=== PATIENT | female | born 1950 | race African-American/Black ===

== ENCOUNTER → 2016-12-18 | Outpatient (CLI) | payer MEDICARE, OTHER | LOC: RAD 09:10 | PROVIDERS: ATTEND Internal Medicine | DX: R13.10 Dysphagia, unspecified (principal) | CPT/HCPCS: 74220 ==

== ENCOUNTER → 2016-12-26 | Outpatient (CLI) | payer MEDICARE, OTHER | LOC: WI 12:32 | PROVIDERS: ATTEND Internal Medicine | DX: Z12.31 Encounter for screening mammogram for malignant neoplasm of breast (principal) | CPT/HCPCS: 77067; G0202 ==

== ENCOUNTER → 2017-02-18 | Outpatient (CLI) | payer MEDICARE, OTHER | LOC: RAD 16:28 | PROVIDERS: ATTEND Internal Medicine | DX: N20.0 Calculus of kidney (principal); N23 Unspecified renal colic | CPT/HCPCS: 76380 ==

== ENCOUNTER → 2017-03-06 | Outpatient (CLI) | payer MEDICARE, OTHER | LOC: RAD 10:34 | PROVIDERS: ATTEND Internal Medicine | DX: R74.8 Abnormal levels of other serum enzymes (principal); K80.50 Calculus of bile duct without cholangitis or cholecystitis without obstruction; K76.0 Fatty (change of) liver, not elsewhere classified | CPT/HCPCS: 76700; 93976 ==

== ENCOUNTER → 2017-07-17 | Outpatient (CLI) | payer MEDICARE, OTHER ==
[~2017-07-17] MED LIST: DIAZEPAM 5 MG TABLET ONE
--- NOTE | 2017-07-21 15:41 | RADIOLOGY REPORT (SQ) ---
EXAM DESCRIPTION: MRI LT UPPER JOINT WITHOUT COMPLETED DATE/TIME: 07/17/2017 4:13 pm REASON FOR STUDY: LEFT WRIST PAIN (M25.532) M25.532 PAIN IN LEFT WRIST COMPARISON: Subsequently obtained radiographs from 07/18/2017. TECHNIQUE: Left wrist images acquired and stored on PACS. Multiplanar images include fat sensitive sequences as T1, fluid sensitive sequences as FST2/STIR, cartilage sensitive sequences as FSPD, gradi ent echo sequences. LIMITATIONS: None. FINDINGS: BONE MARROW: Small cysts or erosions in the proximal capitate. Also minimally in the hama te proximally. Mild subchondral cysts along the lunate -triquetrum articulation. No fracture. CARPAL ALIGNMENT AND ARTICULATION: Volar tilt of the lunate. Narrowing of the lunate-capitate articu lation. Triscaphe and thumb base degenerative narrowing with small subchondral cysts and minimal spu rring. EFFUSION: None noted. No loose bodies. SCAPHOLUNATE LIGAMENT: Scapholunate interval widening. Discrete tear not otherwise suggested. LUNATE-TRIQUETRAL LIGAMENT: Intact without tear. TFC COMPLEX: Radial and ulnar attachments normal. Meniscus intact. Extensor carpi ulnaris tendon norm al without tendinopathy. EXTRINSIC LIGAMENTS AND DISTAL RADIO-ULNAR JOINT: Dorsal and volar distal RUJ intact without subluxat ion of the distal ulna. 1-6 EXTENSOR COMPARTMENTS: Normal. Specifically no tendinopathy of the abductor pollicis longus or ex tensor pollicis brevis to suggest de Quervain's Syndrome. CARPAL TUNNEL AND MEDIAN NERVE: Normal volume and morphology of the carpal tunnel proximally at the l evel of the radiocarpal joint and distally at the hook of the hamate. No thickening or signal alterat ion of the median nerve. OTHER: No other significant finding. IMPRESSION: 1. Carpal malalignment as above consistent with instability, VISI pattern. Associated prominent subchondral cysts or erosions in the carpal articulations. TECHNICAL DOCUMENTATION: JOB ID: [id number] [employer]- All Rights Reserved
== END ==
LOC: RAD 14:21
PROVIDERS: ATTEND Internal Medicine
DX: M25.532 Pain in left wrist (principal); M25.332 Other instability, left wrist
CPT/HCPCS: 73221; A9270

== ENCOUNTER → 2017-07-18 | Outpatient (CLI) | payer MEDICARE, OTHER ==
--- NOTE | 2017-07-18 14:01 | RADIOLOGY REPORT (SQ) ---
EXAM DESCRIPTION: WRIST LEFT 2 VIEWS COMPLETED DATE/TIME: 07/18/2017 12:52 pm REASON FOR STUDY: PAIN IN L WRIST M25.532 PAIN IN LEFT WRIST COMPARISON: None. NUMBER OF VIEWS: Two views TECHNIQUE: AP and lateral radiographic images acquired of the left wrist. LIMITATIONS: None. FINDINGS: MINERALIZATION: Normal. BONES: No acute fracture. The lunate appears to be rotated dorsally somewhat. There may be slight w idening of the scapholunate interval. SOFT TISSUES: No soft tissue swelling. No foreign body. OTHER: No other significant finding. IMPRESSION: Possible ligamentous injury involving the lunate. The lunate is rotated dorsally somewh at and there appears to be widening of the scapholunate interval. TECHNICAL DOCUMENTATION: JOB ID: [id number] [employer]- All Rights Reserved
== END ==
LOC: RAD 12:40
PROVIDERS: ATTEND Internal Medicine
DX: M25.532 Pain in left wrist (principal)

== ENCOUNTER 2017-10-30 15:11 | Observation (INO) | payer MEDICARE, OTHER ==
[2017-10-30] MEDS ORDERED: INSULIN LISPRO 100 UNIT/ML 3 ML VIAL SUBCUT PRN (17:26)
[2017-10-30] MEDS ORDERED: DEXTROSE 40% GEL 15 GM TUBE PO PRN ×2 (17:26)
[2017-10-30] MEDS ORDERED: DEXTROSE 50%-WATER 25 GM/50 ML DISP.SYRIN IV PRN ×2 (17:26)
[2017-10-30] MEDS ORDERED: GLUCAGON,HUMAN RECOMB 1 MG INJ IM PRN (17:26)
[2017-10-30] MEDS ORDERED: CHLORPHENIRAMINE MALEATE 4 MG TABLET PO PRN (18:45)
[2017-10-30] MEDS ORDERED: ALBUTEROL SULFATE HFA (90 MCG/PUFF) 200 PUFF/8.5 GM MDI IH PRN (18:45)
[2017-10-30] MEDS ORDERED: CYCLOBENZAPRINE HCL 10 MG TABLET PO PRN (18:45)
[2017-10-30 20:02] LABS: ABSOLUTE EOSINOPHILS # (AUTO) 0.3 10^3/uL (0.0-0.6); ABSOLUTE LYMPHOCYTES (AUTO) 2.5 10^3/uL (0.5-4.7); ABSOLUTE MONOCYTES (AUTO) 0.7 10^3/uL (0.1-1.4); ABSOLUTE NEUT (AUTO) 3.9 10^3/uL (1.7-8.2); BASOPHILS % (AUTO) 0.6 % (0-2); HEMATOCRIT 35.8 % (36.0-47.0); HEMOGLOBIN 11.8 g/dL (12.0-15.5); LYMPHOCYTES % (AUTO) 33.9 % (13-45); MEAN CORPUSCULAR HEMOGLOBIN 27.8 pg (27.0-33.4); MEAN CORPUSCULAR HGB CONC 32.9 g/dL (32.0-36.0); MEAN CORPUSCULAR VOLUME 84 fl (80-97); PLATELET COUNT 250 10^3/uL (150-450); RED BLOOD COUNT 4.24 10^6/uL (3.72-5.28); RED CELL DISTRIBUTION WIDTH 15.5 % (11.5-14.0); SEGMENTED NEUTROPHILS % (AUTO) 52.5 % (42-78); TOTAL CELLS COUNTED % (AUTO) 100 %; WHITE BLOOD COUNT 7.3 10^3/uL (4.0-10.5)
[2017-10-30 20:25] LABS: ALANINE AMINOTRANSFERASE 27 U/L (9-52); ALBUMIN 3.7 g/dL (3.5-5.0); ALKALINE PHOSPHATASE 156 U/L (38-126); ASPARTATE AMINO TRANSFERASE 18 U/L (14-36); BILIRUBIN,DIRECT 0.2 mg/dL (0.0-0.4); BILIRUBIN,TOTAL 0.3 mg/dL (0.2-1.3); BLOOD UREA NITROGEN 17 mg/dL (7-20); CALCIUM 9.5 mg/dL (8.4-10.2); CARBON DIOXIDE 30 mmol/L (22-30); CREATINE KINASE 79 U/L (30-135); GLUCOSE 130 mg/dL (75-110); POTASSIUM 3.9 mmol/L (3.6-5.0); SODIUM 139.8 mmol/L (137-145); TOTAL PROTEIN 6.6 g/dL (6.3-8.2)
[2017-10-30 20:26] LABS: ANION GAP 10 (5-19); CHLORIDE 100 mmol/L (98-107)
--- NOTE | 2017-10-30 20:34 | PDOC H&P ---
History of Present Illness Admission Date/PCP: 10/30/17 15:11 EMIGDIO WOODY MD History of Present Illness: NEVAEH BAHENA is a 67 year old female, She came to the office this afternoon for evaluation of substernal chest pain. She went to see the pain specialist this afternoon and she developed acute episode of substernal chest pain that radiated to her jaw area there was no antecedent provoking factors there was no exertion. She was advised to see us in the office immediately, she came to the office from the pain specialist office she was walked into the office , she was taken immediately to the back ,vital signs were taking a 12-lead EKG was done showed sinus rhythm there was no acute ST-T wave changes there was evidence of intra-ventricular conduction delay the EKG that was done today was no different from EKG done 4 years ago. She had a cardiac cauterization in 2007 that showed normal coronary arteries. Because she has multiple risk factors for ischemic heart disease, type 2 diabetes mellitus, hypertension, relatively sedentary lifestyle, she was admitted to the hospital for evaluation and management of her symptoms. She had lexiscan Cardiolite stress test done, there is no scintigraphic evidence of Lexiscan induced mild myocardial ischemia involving the inferior apex and distal inferior wall. There is no definitive scintigraphic evidence of myocardial. infarction/scar. EKG gated imaging shows left ventricular ejection fraction of approximately 39%, 2D echo showed grade 2 diastolic dysfunction of left ventricle. Ultrasound of the gallbladder was negative Past Medical History Cardiac Medical History: Reports: Hyperlipidema, Hypertension Endocrine Medical History: Reports: Diabetes Mellitus Type 2, Hypothyroidism, Obesity GI Medical History: Reports: Gastroesophageal Reflux Disease, Hiatal Hernia, Other - Fatty liver Musculoskeltal Medical History: Reports: Arthritis - "EVERYWHERE" Past Surgical History Past Surgical History: Reports: Hysterectomy, Orthopedic Surgery - rt knee replacememt Social History Smoking Status: Former Smoker Last Time Smoked: 10 years ago Frequency of Alcohol Use: None Hx Recreational Drug Use: No Hx Prescription Drug Abuse: No Family History Family History: Reviewed & Not Pertinent Parental Family History Reviewed: Yes Children Family History Reviewed: Yes Sibling(s) Family History Reviewed.: Yes Medication/Allergy Home Medications: Albuterol Sulfate [Proair HFA Inhalation Aerosol 8.5 gm MDI] 2 puff IH Q4HP PRN 10/30/17 Alprazolam [Xanax 0.5 mg Tablet] 0.5 mg PO Q8HP PRN 10/30/17 Aspirin [Aspirin EC] 81 mg PO DAILY 10/30/17 Canagliflozin [Invokana] 300 mg PO DAILY 10/30/17 Chlorpheniramine Maleate [Chlor-Trimeton 4 mg Tablet] 4 mg PO DAILYP PRN Cyclobenzaprine HCl [Flexeril 10 mg Tablet] 10 mg PO Q8HP PRN 10/30/17 Doxepin HCl 50 mg PO BID 10/30/17 Ergocalciferol (Vitamin D2) [Drisdol 50,000 unit (1.25MG) Capsule] 50,000 unit PO MALCOLM@1000 10/30/17 Esomeprazole Magnesium [Nexium] 40 mg PO DAILY 10/30/17 Gabapentin [Neurontin] 600 mg PO Q8 10/30/17 Glimepiride [Amaryl 4 mg Tablet] 4 mg PO ACBRKFST 10/30/17 Hydrocodone/Acetaminophen [[place] 10-325 mg Tablet] 1 tab PO Q8HP PRN 10/30/17 Levothyroxine Sodium [Synthroid] 137 mcg PO Q6AM 10/30/17 Meloxicam [Mobic] 15 mg PO DAILY 10/30/17 Metformin HCl [Metformin HCl ER] 500 mg PO DAILY 10/30/17 Omeprazole 40 mg PO DAILY 10/30/17 Pioglitazone HCl [Actos 15 mg Tablet] 15 mg PO DAILY 10/30/17 Potassium Chloride [Klor-Con 10 Meq Tablet.sa] 10 meq PO DAILY 10/30/17 Tiotropium [place] [Spiriva Handihaler 18 mcg/dose (30 Dose)] 1 cap IH DAILY Valsartan/Hydrochlorothiazide [Diovan Hct 320-25 mg Tablet] 1 tab PO DAILY 10/30 Allergies/Adverse Reactions: adhesive [Adhesive] Allergy (Intermediate, Verified 09/20/15 08:42) BLISTERS IF STAYS ON TOO LONG Review of Systems Constitutional: ABSENT: as per HPI, anorexia, chills, fatigue, fever(s), headache(s), night sweats, weakness, weight gain, weight loss, other Ears: ABSENT: hearing changes Nose, Mouth, and Throat: ABSENT: as per HPI, headache(s), mouth pain, sore throat, vertigo, other Cardiovascular: PRESENT: chest pain Respiratory: ABSENT: cough, hemoptysis Gastrointestinal: ABSENT: abdominal pain, constipation, diarrhea, hematemesis, hematochezia, nausea, vomiting Genitourinary: ABSENT: dysuria, hematuria Musculoskeletal: ABSENT: joint swelling Integumentary: ABSENT: rash, wounds Neurological: ABSENT: abnormal gait, abnormal speech, confusion, dizziness, focal weakness, syncope Psychiatric: ABSENT: anxiety, depression, homidical ideation, suicidal ideation Endocrine: ABSENT: cold intolerance, heat intolerance, menstrual abnormalities, polydipsia, polyuria Hematologic/Lymphatic: ABSENT: easy bleeding, easy bruising, lymphadenopathy Physical Exam Vital Signs: Temp Pulse Resp BP Pulse Ox 97.6 F 62 18 131/64 H 95 10/30/17 16:01 10/30/17 16:01 10/30/17 16:01 10/30/17 16:01 10/30/17 16:01 Intake & Output 10/29/17 10/30/17 10/31/17 06:59 06:59 06:59 Intake Total 10 Output Total 0 Balance 10 Weight 102.5 kg General appearance: PRESENT: no acute distress, well-developed, well-nourished Head exam: PRESENT: atraumatic, normocephalic Eye exam: PRESENT: conjunctiva pink, EOMI, PERRLA Ear exam: PRESENT: normal external ear exam Mouth exam: PRESENT: moist, tongue midline Neck exam: PRESENT: full ROM Respiratory exam: PRESENT: clear to auscultation evin Cardiovascular exam: PRESENT: RRR, +S1, +S2 Pulses: PRESENT: normal dorsalis pedis pul, +2 pedal pulses bilateral Vascular exam: PRESENT: normal capillary refill GI/Abdominal exam: PRESENT: normal bowel sounds, soft Rectal exam: PRESENT: deferred Neurological exam: PRESENT: alert, CN II-XII grossly intact Psychiatric exam: PRESENT: appropriate affect, normal mood Skin exam: PRESENT: dry, intact, warm Results Laboratory Results: 10/30/17 19:44 10/30/17 19:44 10/30/17 10/30/17 19:44 19:44 WBC 7.3 RBC 4.24 Hgb 11.8 L Hct 35.8 L MCV 84 MCH 27.8 MCHC 32.9 RDW 15.5 H Plt Count 250 Seg Neutrophils % 52.5 Lymphocytes % 33.9 Monocytes % 9.0 Eosinophils % 4.0 Basophils % 0.6 Absolute Neutrophils 3.9 Absolute Lymphocytes 2.5 Absolute Monocytes 0.7 Absolute Eosinophils 0.3 Absolute Basophils 0.0 Sodium 139.8 Potassium 3.9 Chloride 100 Carbon Dioxide 30 Anion Gap 10 BUN 17 Creatinine 0.93 Est GFR ( Amer) > 60 Est GFR (Non-Af Amer) > 60 Glucose 130 H Calcium 9.5 Total Bilirubin 0.3 AST 18 ALT 27 Alkaline Phosphatase 156 H Total Protein 6.6 Albumin 3.7 10/30/17 19:44 Creatine Kinase 79 Assessment & Plan - Diagnosis (1) Chest pain Qualifiers: Chest pain type: unspecified Qualified Code(s): R07.9 - Chest pain, unspecified Is this a current diagnosis for this admission?: Yes (2) Abnormal cardiovascular stress test Is this a current diagnosis for this admission?: Yes Plan: The nuclear stress test is abnormal suggesting that the chest pain could be cardiac related, consultation will be requested from cardiology (3) Type 2 diabetes mellitus Qualifiers: Diabetes mellitus complication status: without complication Diabetes mellitus alf insulin use: without alf use Qualified Code(s): E11.9 - Type 2 diabetes mellitus without complications Is this a current diagnosis for this admission?: Yes
[2017-10-30 20:37] LABS: CREATINE KINASE MB 0.46 ng/mL (<4.55); TROPONIN I < 0.012 ng/mL
[2017-10-30] MEDS ORDERED: ENOXAPARIN SODIUM INJ 40 MG/0.4 ML DISP.SYRIN SUBCUT ONE (21:00)
[2017-10-30 21:07] LABS: INTERNATIONAL RATION (INR) 0.86; PROTHROMBIN TIME 12.4 SEC (11.4-15.4)
--- NOTE | 2017-10-30 21:08 | RADIOLOGY REPORT (SQ) ---
EXAM DESCRIPTION: CHEST SINGLE VIEW COMPLETED DATE/TIME: 10/30/2017 8:33 pm REASON FOR STUDY: chest pain COMPARISON: 07/13/2016 EXAM PARAMETERS: NUMBER OF VIEWS: One view. TECHNIQUE: Single frontal radiographic view of the chest acquired. RADIATION DOSE: NA LIMITATIONS: None. FINDINGS: LUNGS AND PLEURA: No acute opacities, masses or pneumothorax. No pleural effusion. MEDIASTINUM AND HILAR STRUCTURES: Stable. HEART AND VASCULAR STRUCTURES: Heart normal in size. Normal vasculature. BONES: No acute findings. HARDWARE: None in the chest. OTHER: No other significant finding. IMPRESSION: NO ACUTE RADIOGRAPHIC FINDING IN THE CHEST. TECHNICAL DOCUMENTATION: JOB ID: [id number] [id number] [employer]- All Rights Reserved
[2017-10-30] MEDS: GABAPENTIN 300 MG CAPSULE PO SCH (22:17)
[2017-10-30] MEDS: ALPRAZOLAM 0.5 MG TABLET PO PRN (22:18)
[2017-10-30] MEDS: HYDROCODONE/ACETAMINOPHEN 10-325 MG TABLET PO PRN (22:18)
[2017-10-30] MEDS: DOXEPIN HCL 25 MG CAPSULE PO SCH (22:31)
[2017-10-31 02:25] LABS: CREATINE KINASE MB 0.36 ng/mL (<4.55)
[2017-10-31 02:37] LABS: TROPONIN I < 0.012 ng/mL
[2017-10-31] MEDS: GABAPENTIN 300 MG CAPSULE PO SCH ×3 (05:09→22:23)
[2017-10-31] MEDS: LEVOTHYROXINE SODIUM 0.025 MG TABLET PO SCH (05:10)
[2017-10-31] MEDS: LANSOPRAZOLE 30 MG TAB.RAP.DR PO SCH (05:10)
[2017-10-31] MEDS: LEVOTHYROXINE SODIUM 0.112 MG TABLET PO SCH (05:10)
[2017-10-31] MEDS ORDERED: (PENDING PHARMACY ID) (Levothyroxine Sodium [Synthroid] 137 MCG) PO SCH (06:00)
--- NOTE | 2017-10-31 07:08 | RADIOLOGY REPORT (SQ) ---
EXAM DESCRIPTION: U/S ABDOMEN LIMITED W/O DOP CLINICAL HISTORY: EPIGASTRIC PAIN COMPARISON: None. TECHNIQUE: Real-time sonographic images of the right upper abdomen were obtained using a curved multihertz transducer. FINDINGS: The visualized portions of the pancreas are unremarkable. The visualized portions of the aorta and IVC are unremarkable. The liver has normal contour and increased echogenicity. The common bile duct measures 0.3 cm. Hepatopedal flow in the portal vein. The gallbladder has a normal appearance. No gallstones identified. No wall thickening or pericholecystic fluid. The pancreas is not well-visualized due to overlying bowel gas. Negative reported sonographic Luque sign. The right kidney measures 10.1 cm in length. No hydronephrosis or solid mass. Questionable echogenic structure involving the superior pole of the right kidney may represent a nonobstructing calculus. IMPRESSION: 1. No gallstones identified. 2. Hepatic steatosis. 3. Possible nonobstructing superior pole right renal calculus.
[2017-10-31] MEDS: GLIMEPIRIDE 4 MG TABLET PO SCH (08:56)
[2017-10-31] MEDS: METFORMIN HCL 500 MG TABLET PO SCH ×2 (08:56→17:33)
[2017-10-31 09:12] LABS: CREATINE KINASE MB 0.34 ng/mL (<4.55)
[2017-10-31 09:22] LABS: TROPONIN I < 0.012 ng/mL
[2017-10-31] MEDS ORDERED: PIOGLITAZONE HCL 15 MG TABLET PO SCH (10:00)
[2017-10-31] MEDS ORDERED: (PENDING PHARMACY ID) (Doxepin Hcl [Doxepin Hcl] 50 MG) PO SCH (10:00)
[2017-10-31] MEDS ORDERED: ASPIRIN 81 MG TABLET, ENT COATED PO SCH (10:00)
[2017-10-31] MEDS ORDERED: POTASSIUM CHLORIDE 10 MEQ TABLET.SA PO SCH (10:00)
[2017-10-31] MEDS ORDERED: VALSARTAN 160 MG TABLET PO SCH (10:00)
[2017-10-31] MEDS ORDERED: ENOXAPARIN SODIUM INJ 40 MG/0.4 ML DISP.SYRIN SUBCUT SCH (10:00)
[2017-10-31] MEDS ORDERED: (PENDING PHARMACY ID) (Valsartan/Hydrochlorothiazide [Diovan Hct 320-25 Mg Tablet] 1 TAB) PO SCH (10:00)
[2017-10-31] MEDS ORDERED: HYDROCHLOROTHIAZIDE 25 MG TABLET PO SCH (10:00)
[2017-10-31] MEDS ORDERED: (PENDING PHARMACY ID) (Metformin Hcl [Metformin Hcl Er] 500 MG) PO SCH (10:00)
[2017-10-31] MEDS ORDERED: MELOXICAM 15 MG TABLET PO SCH (10:00)
[2017-10-31] MEDS ORDERED: (PENDING PHARMACY ID) (Canagliflozin [Invokana] 300 MG) PO SCH (10:00)
[2017-10-31] MEDS ORDERED: TIOTROPIUM BROMIDE DPI 5 CAP/KIT (18 MCG/CAP) IH SCH (10:00)
[2017-10-31] MEDS: DOXEPIN HCL 25 MG CAPSULE PO SCH ×2 (11:36→22:37)
--- NOTE | 2017-10-31 12:49 | XCELERA REPORT ---
[address] [address] Transthoracic Echocardiogram Report Name: NEVAEH BAHENA Age: 67 yrs Gender: Female : 1950 Patient Status: Inpatient Patient Location: [address] [place], [place] [address] Study Date: 10/31/2017 09:05 AM Height: 62 in Weight: 225 lb BSA: 2.0 m2 Procedure: A complete two-dimensional transthoracic echocardiogram was performed (2D, M-mode, spectral and color flow Doppler). The study was technically difficult with many images being suboptimal in quality. Reason For Study: chest pain Ordering Physician: EMIGDIO WOODY Performed By: Giovanna Vigil Interpretation Summary The study was technically difficult with many images being suboptimal in quality. LV EF is 50% Left ventricular systolic function is borderline reduced. There is mild concentric left ventricular hypertrophy. The left ventricle is grossly normal size. Doppler measurements suggest pseudonormalized left ventricular relaxation, which is associated with grade II/IV or mild to moderate diastolic dysfunction Wall motion cannot be accurately commented on, but no definite regional wall motion abnormalities noted. The right ventricular systolic function is normal. The right atrium is normal in size The left atrial size is normal. There is a trace amount of mitral regurgitation There is no mitral valve stenosis. No aortic regurgitation is present. There is no aortic valve stenosis There is a trace or physiologic amount of tricuspid regurgitation Tricuspid regurgitation jet envelope not well defined to measure RV systolic pressure accurately. The aortic root is not well visualized but is probably normal size. The inferior vena cava appeared normal and decreased > 50% with respiration (RAP 5-10 mmHg) There is no pericardial effusion. MMode/2D Measurements & Calculations RVDd: 3.0 cm LVIDd: 5.1 cm FS: 25.0 % Ao root diam: 2.4 cm IVSd: 1.1 cm LVIDs: 3.8 cm EDV(Teich): 125.0 ml LVPWd: 1.1 cm ESV(Teich): 63.6 ml Ao root area: 4.6 cm2 EF(Teich): 49.1 % LA dimension: 3.2 cm Doppler Measurements & Calculations MV E max eric: MV P1/2t max eric: Ao V2 max: LV V1 max P.5 cm/sec 51.5 cm/sec 163.9 cm/sec 5.8 mmHg MV A max eric: MV P1/2t: 77.8 msec Ao max PG: LV V1 max: 58.7 cm/sec 10.7 mmHg 120.7 cm/sec MV E/A: 0.88 MVA(P1/2t): 2.8 cm2 MV dec slope: 194.2 cm/sec2 MV dec time: 0.26 sec PA V2 max: PI end-d eric: 95.8 cm/sec 137.1 cm/sec PA max P.7 mmHg Left Ventricle The left ventricle is grossly normal size. There is mild concentric left ventricular hypertrophy. Left ventricular systolic function is borderline reduced. LV EF is 50%. Doppler measurements suggest pseudonormalized left ventricular relaxation, which is associated with grade II/IV or mild to moderate diastolic dysfunction. Wall motion cannot be accurately commented on, but no definite regional wall motion abnormalities noted. Right Ventricle The right ventricle is grossly normal size. There is normal right ventricular wall thickness. The right ventricular systolic function is normal. Atria The right atrium is normal in size. The left atrial size is normal. Interarterial septum not well visualized and not well dopplered. Cannot comment on ASD/PFO presence. Mitral Valve The mitral valve is grossly normal. There is no mitral valve stenosis. There is a trace amount of mitral regurgitation. Aortic Valve The aortic valve is not well visualized secondary to technical limitations. There is no aortic valve stenosis. No aortic regurgitation is present. Tricuspid Valve The tricuspid valve is not well visualized, but is grossly normal. There is no tricuspid stenosis. There is a trace or physiologic amount of tricuspid regurgitation. Tricuspid regurgitation jet envelope not well defined to measure RV systolic pressure accurately. Pulmonic Valve The pulmonic valve is not well visualized. Great Vessels The aortic root is not well visualized but is probably normal size. The inferior vena cava appeared normal and decreased > 50% with respiration (RAP 5-10 mmHg). Effusions There is no pericardial effusion. : EMIGDIO WOODY > Shoaib Cha
--- NOTE | 2017-10-31 13:12 | DRAGON STRESS TEST REPORT ---
INTRAVENOUS LEXISCAN CARDIOLITE STRESS TEST USING SINGLE PHOTON EMMISION COMPUTERIZED TOMOGRAPHIC. DATE OF PROCEDURE: October 31, 2017 INDICATION : Chest pain CARDIAC RISK FACTORS: Diabetes, hypertension RESTING EKG: Sinus rhythm, nonspecific IVCD and minor nonspecific ST-T wave changes. STRESS EKG: No significant changes noted with LexiScan bolus REASON FOR TERMINATION: Protocol. PROCEDURE REPORT: Baseline heart rate 73 beats per minute with blood pressure of 102/49. Patient had no significant complaints. Heart rate at 2 minutes post bolus 86 with a blood pressure of 103/55. 3 minutes post bolus heart rate 88 with blood pressure of 106/54. No significant EKG changes were noted. Patient had no significant complaints during the procedure or postprocedure. Patient injected with Aminophyllin 75 mg at 3 minutes or later after Lexiscan bolus. CONCLUSIONS: Normal EKG and hemodynamic response to IV LexiScan. NUCLEAR DATA: At rest the patient was given 14.73 millicuries of technetium 99 sestamibi injected intravenously. As per protocol rest gated SPECT images were obtained. Subsequently the patient was given intravenous LexiScan at a dose of 0.4 mg in 5 mL intravenously, followed by flush with normal saline. Subsequently the stress dose of 45.5 millicuries of technetium 99 sestamibi was injected intravenously. As per protocol stress gated images were obtained. NUCLEAR INTERPRETATION: Both raw and processed data were used for interpretation. Visual, qualitative, computer-generated quantitative data was used. There was good myocardial uptake of technetium compound. Motion artifact and soft tissue attenuations were noted. Increased visceral uptake was noted. Mild perfusion defect noted in the distal inferior wall and inferoapex of the left ventricle. This is consistent with mild ischemia. No definitive areas of fixed perfusion defect or scars noted. EKG gated imaging showed LV EF at 39 %, rest and stress gated EF similar visually. T. I D. ratio was 0.86. Lung heart ratio noted to be within normal limits 0.36. No significant extracardiac and abnormal radiotracer activities were noted. RV free wall uptake was noted to be WNL. IMPRESSION: Also refer to comments under nuclear interpretation. Also test results needs to be interpreted in the context of pretest probability. 1. There is scintigraphic evidence of LexiScan induced mild myocardial ischemia involving the inferior apex and distal inferior wall. 2. There is no definitive scintigraphic evidence of myocardial infarction/scar. 3. EKG gated imaging shows left ventricular ejection fraction of approximately 39 %. 4. Clinical correlation requested as occasionally single vessel disease or balanced ischemia could be missed. In approximately 10% of the cases Lexiscan may not cause adequate vasodilatory stress. RECOMMENDATIONS: Aggressive risk factor modification, medical therapy. May consider heart catheterization if significant symptoms. Clinical correlation with echocardiogram derived ejection fraction. Inability to exercise by itself can lead to increased cardiovascular event risks. Consider cardiology consultation and or follow-up if clinically indicated. I AM AVAILABLE FOR CARDIOLOGY CONSULTATION AND FOLLOWUP IF REQUESTED BY PMD Shoaib Cha M.D., [place] Director [employer] blending plant operator, Board certified in cardiovascular diseases, Nuclear cardiology, Echocardiography Cardiac CT and cardiac MRI Ph. [phone] [place]
[2017-10-31] MEDS ORDERED: AMINOPHYLLINE INJ/PF 250 MG/10 ML SDV IV ONE (15:04)
[2017-10-31] MEDS ORDERED: REGADENOSON INJ 0.4 MG/5 ML DISP.SYRIN IV ONE (15:04)
[2017-10-31] MEDS ORDERED: NORMAL SALINE 1000 ML 1,000 ML IV PRN (18:42)
--- NOTE | 2017-10-31 18:56 | PDOC CONSULTATION ---
Consultation Consult Date: 10/31/17 Attending physician:: EMIGDIO WOODY Consult reason:: Chest pain History of Present Illness Admission Date/PCP: 10/30/17 15:11 EMIGDIO WOODY MD Patient complains of: Chest pain and shortness of breath History of Present Illness: NEVAEH BAHENA is a 67 year old female, She came to the office this afternoon for evaluation of substernal chest pain. She went to see the pain specialist this afternoon and she developed acute episode of substernal chest pain that radiated to her jaw area there was no antecedent provoking factors there was no exertion. She was advised to see us in the office immediately, she came to the office from the pain specialist office she was walked into the office , she was taken immediately to the back ,vital signs were taking a 12-lead EKG was done showed sinus rhythm there was no acute ST-T wave changes there was evidence of intra-ventricular conduction delay the EKG that was done today was no different from EKG done 4 years ago. She had a cardiac cauterization in 2007 that showed normal coronary arteries. Because she has multiple risk factors for ischemic heart disease, type 2 diabetes mellitus, hypertension, relatively sedentary lifestyle, she was admitted to the hospital for evaluation and management of her symptoms. She had lexiscan Cardiolite stress test done, there is no scintigraphic evidence of Lexiscan induced mild myocardial ischemia involving the inferior apex and distal inferior wall. There is no definitive scintigraphic evidence of myocardial. infarction/scar. EKG gated imaging shows left ventricular ejection fraction of approximately 39%, 2D echo showed grade 2 diastolic dysfunction of left ventricle. Ultrasound of the gallbladder was negative. This history was reviewed and confirmed. Patient claims history of blood clots. She is fairly inactive. She does give history of shortness of breath on mild exertion. She does have history of loud snoring and nocturnal dyspnea. Patient also gives history of spinal stenosis. Patient is exposed to secondhand smoking. Cardiac enzymes has been negative. Patient has been in the room. Patient has been noted to have loud habitual snoring, nocturnal awakening, multiple times, daytime fatigue and sleepiness. Patient denied any formal diagnosis of sleep apnea syndrome. Past Medical History Cardiac Medical History: Reports: Hyperlipidema, Hypertension Neurological Medical History: Denies: Seizures Endocrine Medical History: Reports: Diabetes Mellitus Type 2, Hyperthyroidism, Hypothyroidism, Obesity GI Medical History: Reports: Gastroesophageal Reflux Disease, Hiatal Hernia, Other - Fatty liver Musculoskeltal Medical History: Reports: Arthritis - "EVERYWHERE" Psychiatric Medical History: Denies: Depression Past Surgical History Past Surgical History: Reports: Cardiac Catheterization - 2 approx 10 years ago which were told to be negative., Hysterectomy, Orthopedic Surgery - rt knee replacememt Social History Information Source: Patient Smoking Status: Former Smoker Last Time Smoked: 10 years ago Frequency of Alcohol Use: None Hx Recreational Drug Use: No Hx Prescription Drug Abuse: No - Advance Directive Resuscitation Status: Full Code Surrogate healthcare decision maker:: Patient's at the surrogate decision-maker Family History Family History: Hypertension Parental Family History Reviewed: Yes Children Family History Reviewed: Yes Sibling(s) Family History Reviewed.: Yes Medication/Allergy Home Medications: Albuterol Sulfate [Proair HFA Inhalation Aerosol 8.5 gm MDI] 2 puff IH Q4HP PRN 10/30/17 Alprazolam [Xanax 0.5 mg Tablet] 0.5 mg PO Q8HP PRN 10/30/17 Aspirin [Aspirin EC] 81 mg PO DAILY 10/30/17 Canagliflozin [Invokana] 300 mg PO DAILY 10/30/17 Chlorpheniramine Maleate [Chlor-Trimeton 4 mg Tablet] 4 mg PO DAILYP PRN Cyclobenzaprine HCl [Flexeril 10 mg Tablet] 10 mg PO Q8HP PRN 10/30/17 Doxepin HCl 50 mg PO BID 10/30/17 Ergocalciferol (Vitamin D2) [Drisdol 50,000 unit (1.25MG) Capsule] 50,000 unit PO MALCOLM@1000 10/30/17 Esomeprazole Magnesium [Nexium] 40 mg PO DAILY 10/30/17 Gabapentin [Neurontin] 600 mg PO Q8 10/30/17 Glimepiride [Amaryl 4 mg Tablet] 4 mg PO ACBRKFST 10/30/17 Hydrocodone/Acetaminophen [[place] 10-325 mg Tablet] 1 tab PO Q8HP PRN 10/30/17 Levothyroxine Sodium [Synthroid] 137 mcg PO Q6AM 10/30/17 Meloxicam [Mobic] 15 mg PO DAILY 10/30/17 Metformin HCl [Metformin HCl ER] 500 mg PO DAILY 10/30/17 Omeprazole 40 mg PO DAILY 10/30/17 Pioglitazone HCl [Actos 15 mg Tablet] 15 mg PO DAILY 10/30/17 Potassium Chloride [Klor-Con 10 Meq Tablet.sa] 10 meq PO DAILY 10/30/17 Tiotropium [place] [Spiriva Handihaler 18 mcg/dose (30 Dose)] 1 cap IH DAILY Valsartan/Hydrochlorothiazide [Diovan Hct 320-25 mg Tablet] 1 tab PO DAILY 10/30 Allergies/Adverse Reactions: adhesive [Adhesive] Allergy (Intermediate, Verified 09/20/15 08:42) BLISTERS IF STAYS ON TOO LONG Review of Systems Review of Systems: Please see history of present illness and past medical history as wall. Constitutional: No fever or chills reported. Head : No recent chronic headaches, recent head injury. Eyes: No recent eye pain, diplopia, redness, discharge, acute visual changes. Ears: No recent chronic ear pain, acute hearing loss, ear discharge. Oral cavity: No recent ulcerations, bleeding, oral cavity discomfort. Neck: No recent acute neck pain reported. Hematologic: No recent easy bruising or bleeding or hematologic malignancy reported. Lymphatic: No recent lymphatic malignancy, chronic lymphadenopathy reported yet Cardiovascular system review: See history of present illness. Respiratory system review: No recent chronic cough, hemoptysis, blood clots in the lungs reported. Mild Shortness of breath on exertion Gastrointestinal system review: Negative for any recent acute or chronic abdominal pain, hematemesis, melena, recent change in bowel habits. Genitourinary system review: No recent acute or chronic hematuria, flank pain, UTI etc. reported. Skin system review: Negative for any recent abnormal bruising, no rash, no pruritus reported. Neurologic: No prior history of strokes, mini strokes, seizure disorder. Psychologic: No history of major psychosis or major depression reported. Musculoskeletal: Minor aches and pains reported. No acute joint swelling reported. Endocrine: No recent polyuria, polydipsia, recent heat or cold intolerance. Physical Exam Vital Signs: Temp Pulse Resp BP Pulse Ox 98.1 F 82 18 98/52 L 96 10/31/17 16:08 10/31/17 16:08 10/31/17 16:08 10/31/17 16:08 10/31/17 16:08 Intake & Output 10/30/17 10/31/17 11/01/17 06:59 06:59 06:59 Intake Total 347 0 Output Total 0 Balance 347 0 Weight 103 kg Exam: GENERAL: well-nourished and in no acute distress. Alert and oriented x3 HEAD: Atraumatic, normocephalic. EYES: Pupils equal round and reactive to light, extraocular movements intact, sclera anicteric, conjunctiva are normal. ENT: TMs normal, nares patent, oropharynx clear without exudates. Moist mucous membranes. No oral ulcerations or bleeding gums noted NECK: supple without lymphadenopathy. Trachea is central. No cervical or axillary lymphadenopathy noted. Carotids are 2+, JVD WNL LUNGS: Respiration seems nonlabored, no significant accessory muscle action noted. Breath sounds clear to auscultation bilaterally and equal noted. No wheezes rales or rhonchi noted. No significant dullness noted on percussion. CHEST: Palpation of the chest wall shows no significant chest wall tenderness. No other significant abnormalities noted. 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 ABDOMEN: Soft, no significant tenderness appreciated, normoactive bowel sounds. No guarding, no rebound. No rigidity noted . No masses appreciated. EXTREMITIES: Pedal pulses are 1-2+, no calf tenderness noted. No clubbing or cyanosis.trace to 1+ pedal edema noted NEUROLOGICAL: Focused neurological exam showed no significant neurologic deficit. Normal speech, no focal weakness appreciated. PSYCH: Normal mood, normal affect. Judgment and insight within normal limits. SKIN: No significant ecchymosis, rash, ulcerations or signs of pruritus noted. MUSCULOSKELETAL EXAM: No significant joint swelling noted. Results Laboratory Results: 10/30/17 19:44 10/30/17 19:44 10/30/17 10/30/17 19:44 19:44 WBC 7.3 RBC 4.24 Hgb 11.8 L Hct 35.8 L MCV 84 MCH 27.8 MCHC 32.9 RDW 15.5 H Plt Count 250 Seg Neutrophils % 52.5 Lymphocytes % 33.9 Monocytes % 9.0 Eosinophils % 4.0 Basophils % 0.6 Absolute Neutrophils 3.9 Absolute Lymphocytes 2.5 Absolute Monocytes 0.7 Absolute Eosinophils 0.3 Absolute Basophils 0.0 Sodium 139.8 Potassium 3.9 Chloride 100 Carbon Dioxide 30 Anion Gap 10 BUN 17 Creatinine 0.93 Est GFR ( Amer) > 60 Est GFR (Non-Af Amer) > 60 Glucose 130 H Calcium 9.5 Total Bilirubin 0.3 AST 18 ALT 27 Alkaline Phosphatase 156 H Total Protein 6.6 Albumin 3.7 10/30/17 10/30/17 10/30/17 19:44 19:44 19:44 Creatine Kinase 79 CK-MB (CK-2) 0.46 Troponin I < 0.012 NT-Pro-B Natriuret Pep 37 10/31/17 10/31/17 10/31/17 01:43 01:43 07:45 Creatine Kinase 66 57 CK-MB (CK-2) 0.36 Troponin I < 0.012 NT-Pro-B Natriuret Pep 10/31/17 07:45 Creatine Kinase CK-MB (CK-2) 0.34 Troponin I < 0.012 NT-Pro-B Natriuret Pep EKG Comments: Sinus rhythm, nonspecific IVCD but no significant acute ST-T wave changes. Impressions: Chest X-Ray 10/30/17 00:00 IMPRESSION: NO ACUTE RADIOGRAPHIC FINDING IN THE CHEST. Abdomen Ultrasound 10/31/17 00:00 IMPRESSION: 1. No gallstones identified. 2. Hepatic steatosis. 3. Possible nonobstructing superior pole right renal calculus. Assessment & Plan - Diagnosis (1) Abnormal cardiovascular stress test Is this a current diagnosis for this admission?: Yes (2) Chest pain Qualifiers: Chest pain type: unspecified Qualified Code(s): R07.9 - Chest pain, unspecified Is this a current diagnosis for this admission?: Yes (3) Hypertension Qualifiers: Hypertension type: essential hypertension Qualified Code(s): I10 - Essential (primary) hypertension Is this a current diagnosis for this admission?: Yes (4) Shortness of breath Is this a current diagnosis for this admission?: Yes (5) Type 2 diabetes mellitus Qualifiers: Diabetes mellitus complication status: without complication 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 However given patient's body habitus and somewhat suboptimal image quality, I have low confidence overall whether this is a true ischemia or artifactual. Patient has negative cardiac enzymes. At this point since even if it is a true ischemia and since total area of ischemia is small, will recommend trial of medical therapy. However if she continues with recurrent chest pain then at that point will consider performing heart catheterization. In the meantime will optimize medical therapy for presumed underlying CAD. Patient also noted to have elevated d-dimer. Since patient is obese and fairly inactive, would recommend ruling out potentially serious differential diagnosis of pulmonary embolism. Have recommended that patient have a CTA of the chest to rule this out. Hypertension: Blood pressure goal is 135/85 or less in patient with diabetics and hypertensive. Dyspnea: Patient will benefit from weight loss. Type 2 diabetes: This is being expertly managed by Dr. Woody. Sleep apnea: This is being strongly suspected. Patient does give history of loud snoring and has body habitus as well as oropharyngeal exam suggestive of underlying sleep apnea syndrome. Patient will benefit from a sleep study. This was explained to the patient. Untreated sleep apnea does increase his risk of myocardial infarction and SCD. - Time Time Spent: 30 to 50 Minutes - CODE STATUS was discussed, patient remains full code. Surrogate decision-maker patient spouse. Multiple medical problems were addressed. More than 50% of the time spent coordinating care, discussing management plans with involved caregivers. Management plans discussed with involved personnels. Medical decision making was of moderate to high complexity , patient's has multiple comorbidities. Medications reviewed and adjusted accordingly: Yes
--- NOTE | 2017-10-31 21:15 | PDOC DISCHARGE SUMMARY ---
General - Admit/Disc Date/PCP Admission Date/Primary Care Provider: 10/30/17 15:11 EMIGDIO WOODY MD Discharge Date: 10/31/17 - Discharge Diagnosis (1) Chest pain Is this a current diagnosis for this admission?: Yes (2) Abnormal cardiovascular stress test Is this a current diagnosis for this admission?: Yes (3) Type 2 diabetes mellitus Is this a current diagnosis for this admission?: Yes - Additional Information Resuscitation Status: Full Code Home Medications: Albuterol Sulfate [Proair HFA Inhalation Aerosol 8.5 gm MDI] 2 puff IH Q4HP PRN 10/30/17 Alprazolam [Xanax 0.5 mg Tablet] 0.5 mg PO Q8HP PRN 10/30/17 Aspirin [Aspirin EC] 81 mg PO DAILY 10/30/17 Canagliflozin [Invokana] 300 mg PO DAILY 10/30/17 Chlorpheniramine Maleate [Chlor-Trimeton 4 mg Tablet] 4 mg PO DAILYP PRN Cyclobenzaprine HCl [Flexeril 10 mg Tablet] 10 mg PO Q8HP PRN 10/30/17 Doxepin HCl 50 mg PO BID 10/30/17 Ergocalciferol (Vitamin D2) [Drisdol 50,000 unit (1.25MG) Capsule] 50,000 unit PO MALCOLM@1000 10/30/17 Esomeprazole Magnesium [Nexium] 40 mg PO DAILY 10/30/17 Gabapentin [Neurontin] 600 mg PO Q8 10/30/17 Glimepiride [Amaryl 4 mg Tablet] 4 mg PO ACBRKFST 10/30/17 Hydrocodone/Acetaminophen [[place] 10-325 mg Tablet] 1 tab PO Q8HP PRN 10/30/17 Levothyroxine Sodium [Synthroid] 137 mcg PO Q6AM 10/30/17 Meloxicam [Mobic] 15 mg PO DAILY 10/30/17 Metformin HCl [Metformin HCl ER] 500 mg PO DAILY 10/30/17 Omeprazole 40 mg PO DAILY 10/30/17 Pioglitazone HCl [Actos 15 mg Tablet] 15 mg PO DAILY 10/30/17 Potassium Chloride [Klor-Con 10 Meq Tablet.sa] 10 meq PO DAILY 10/30/17 Tiotropium [place] [Spiriva Handihaler 18 mcg/dose (30 Dose)] 1 cap IH DAILY Valsartan/Hydrochlorothiazide [Diovan Hct 320-25 mg Tablet] 1 tab PO DAILY 10/30 History of Present Illness History of Present Illness: NEVAEH BAHENA is a 67 year old female, She came to the office this afternoon for evaluation of substernal chest pain. She went to see the pain specialist this afternoon and she developed acute episode of substernal chest pain that radiated to her jaw area there was no antecedent provoking factors there was no exertion. She was advised to see us in the office immediately, she came to the office from the pain specialist office she was walked into the office , she was taken immediately to the back ,vital signs were taking a 12-lead EKG was done showed sinus rhythm there was no acute ST-T wave changes there was evidence of intra-ventricular conduction delay the EKG that was done today was no different from EKG done 4 years ago. She had a cardiac cauterization in 2007 that showed normal coronary arteries. Because she has multiple risk factors for ischemic heart disease, type 2 diabetes mellitus, hypertension, relatively sedentary lifestyle, she was admitted to the hospital for evaluation and management of her symptoms. She had lexiscan Cardiolite stress test done, there is no scintigraphic evidence of Lexiscan induced mild myocardial ischemia involving the inferior apex and distal inferior wall. There is no definitive scintigraphic evidence of myocardial. infarction/scar. EKG gated imaging shows left ventricular ejection fraction of approximately 39%, 2D echo showed grade 2 diastolic dysfunction of left ventricle. Ultrasound of the gallbladder was negative Hospital Course Hospital Course: Patient was admitted for the management of substernal chest pain, stress test was abnormal, she was seen in consultation by, cardiology, Dr. Cha, CTA chest Was done, it was negative for pulmonary embolism Physical Exam Vital Signs: Temp Pulse Resp BP Pulse Ox 98.1 F 97 18 98/52 L 96 10/31/17 16:08 10/31/17 19:00 10/31/17 16:08 10/31/17 16:08 10/31/17 16:08 Intake & Output 10/30/17 10/31/17 11/01/17 06:59 06:59 06:59 Intake Total 347 711 Output Total 0 Balance 347 711 Weight 103 kg General appearance: PRESENT: no acute distress, well-developed, well-nourished Head exam: PRESENT: atraumatic, normocephalic Eye exam: PRESENT: conjunctiva pink, EOMI, PERRLA Ear exam: PRESENT: normal external ear exam Mouth exam: PRESENT: moist, tongue midline Neck exam: PRESENT: full ROM Cardiovascular exam: PRESENT: RRR, +S1, +S2 Pulses: PRESENT: normal dorsalis pedis pul, +2 pedal pulses bilateral Vascular exam: PRESENT: normal capillary refill GI/Abdominal exam: PRESENT: normal bowel sounds, soft Rectal exam: PRESENT: deferred Neurological exam: PRESENT: alert, awake, oriented to person, oriented to place , oriented to time, oriented to situation, CN II-XII grossly intact Psychiatric exam: PRESENT: appropriate affect, normal mood Skin exam: PRESENT: dry, intact, warm Results Laboratory Results: 10/30/17 19:44 10/30/17 19:44 10/30/17 10/30/17 10/30/17 19:44 19:44 19:44 Creatine Kinase 79 CK-MB (CK-2) 0.46 Troponin I < 0.012 NT-Pro-B Natriuret Pep 37 10/31/17 10/31/17 10/31/17 01:43 01:43 07:45 Creatine Kinase 66 57 CK-MB (CK-2) 0.36 Troponin I < 0.012 NT-Pro-B Natriuret Pep 10/31/17 07:45 Creatine Kinase CK-MB (CK-2) 0.34 Troponin I < 0.012 NT-Pro-B Natriuret Pep Impressions: Chest X-Ray 10/30/17 00:00 IMPRESSION: NO ACUTE RADIOGRAPHIC FINDING IN THE CHEST. Abdomen Ultrasound 10/31/17 00:00 IMPRESSION: 1. No gallstones identified. 2. Hepatic steatosis. 3. Possible nonobstructing superior pole right renal calculus.
--- NOTE | 2017-10-31 21:29 | RADIOLOGY REPORT (SQ) ---
EXAM DESCRIPTION: CTA CHEST COMPLETED DATE/TIME: 10/31/2017 8:19 pm REASON FOR STUDY: chest pain R07.9 CHEST PAIN, UNSPECIFIED R10.13 EPIGASTRIC PAIN I11.0 HYPERTEN SIVE HEART DISEASE WITH HEART FAILURE COMPARISON: 10/10/2015 TECHNIQUE: CT scan of the chest performed using helical scanning technique with dynamic intravenous contrast injection. Images reviewed with lung, soft tissue and bone windows. Reconstructed coronal and sagittal MPR images reviewed. Additional 3 dimensional post-processing performed to develop Maximal Intensity Projection images (GA P). All images stored on PACS. All CT scanners at this facility use dose modulation, iterative reconstruction, and/or weight based d osing when appropriate to reduce radiation dose to as low as reasonably achievable (ALARA). [facility]: Dose Right [facility]: CareDose [facility]: Dose Right [facility]: Teradose 4D [facility]: Lapio CONTRAST TYPE AND DOSE: contrast/concentration: Isovue 370.00 mg/ml; Total Contrast Delivered: 201.4 ml; Total Saline Delivered: 143.8 ml Contrast bolus not optimized for the pulmonary arteries or aorta. RENAL FUNCTION: GFR > 60. RADIATION DOSE: CT Rad equipment meets quality standard of care and radiation dose reduction technNekted ues were employed. CTDIvol: 13.2 - 33.6 mGy. DLP: 2341 mGy-cm. . LIMITATIONS: Contrast bolus not optimized for the pulmonary arteries or aorta. FINDINGS: LUNGS AND PLEURA: No masses, consolidation, pneumothorax. Similar small right parenchymal pulmonary cysts. No pleural effusions, calcifications. AORTA AND GREAT VESSELS: No aneurysm. Contrast bolus not optimized for the aorta. HEART: No pericardial effusion. No significant coronary artery calcifications. PULMONARY ARTERIES: No emboli visualized in the main pulmonary arteries. The segmental branches peter ot be assessed. HILAR AND MEDIASTINAL STRUCTURES: No identified masses or abnormal nodes. HARDWARE: None in the chest. UPPER ABDOMEN: No significant findings. Limited exam. THYROID AND OTHER SOFT TISSUES: No masses. No adenopathy. BONES: No acute finding. 3D MIPS: Confirm above findings. OTHER: No other significant finding. IMPRESSION: Contrast bolus not optimized for the pulmonary arteries or aorta.No emboli visualized in the main pulmonary arteries. The segmental branches cannot be assessed. No consolidation. COMMENT: Quality ID # [id number]: Final reports with documentation of one or more dose reduction techniques (e.g., Automated exposure control, adjustment of the mA and/or kV according to patient size, use of iterative reconstruction technique) TECHNICAL DOCUMENTATION: JOB ID: [id number] [place]-72 2010 [employer]- All Rights Reserved
[2017-10-31] MEDS: HYDROCODONE/ACETAMINOPHEN 10-325 MG TABLET PO PRN (22:23)
[2017-10-31] MEDS: ALPRAZOLAM 0.5 MG TABLET PO PRN (22:23)
[2017-11-01] MEDS: GABAPENTIN 300 MG CAPSULE PO SCH (06:02)
[2017-11-01] MEDS: LEVOTHYROXINE SODIUM 0.025 MG TABLET PO SCH (06:03)
[2017-11-01] MEDS: LEVOTHYROXINE SODIUM 0.112 MG TABLET PO SCH (06:03)
[2017-11-01] MEDS: LANSOPRAZOLE 30 MG TAB.RAP.DR PO SCH (06:03)
[2017-11-01] MEDS: GLIMEPIRIDE 4 MG TABLET PO SCH (08:28)
[2017-11-01] MEDS: METFORMIN HCL 500 MG TABLET PO SCH (08:29)
[2017-11-01 09:51] VITALS: BP 131/64
--- NOTE | 2017-11-01 12:12 | EKG REPORT ---
SEVERITY:- ABNORMAL ECG - SINUS RHYTHM LVH WITH IVCD, LAD AND SECONDARY REPOL ABNRM : Confirmed by: Tracey Wesley MD 01-Nov-2017 12:11:55
--- NOTE | 2017-11-01 17:11 | PDOC PROGRESS REPORT ---
Subjective Progress Note for:: 11/01/17 Subjective:: Patient was seen prior to discharge. CT scan results reviewed. Stress test results reviewed. Patient seems to be doing better with gradual improvement. Pt is denying any chest arm or neck discomfort. Patient denying any PND, orthopnea. Patient denied any sustained palpitations, dizziness, syncope, near syncope. Patient denying any fever chills. Patient denying any other significant discomfort. Patient is maintaining sinus rhythm. Review of systems: Rest review of systems negative. Medications: Medications have been reviewed. Reason For Visit: CHEST PAIN Physical Exam Vital Signs: Temp Pulse Resp BP Pulse Ox 98.3 F 66 18 131/64 H 100 11/01/17 09:47 11/01/17 09:47 11/01/17 09:47 11/01/17 09:47 11/01/17 09:47 Intake & Output 10/31/17 11/01/17 11/02/17 06:59 06:59 06:59 Intake Total 347 2566 Output Total 0 Balance 347 2566 Weight 103 kg 105 kg Exam: GENERAL: well-nourished and in no acute distress. Alert and oriented x3 HEAD: Atraumatic, normocephalic. EYES: Pupils equal round and reactive to light, extraocular movements intact, sclera anicteric, conjunctiva are normal. ENT: TMs normal, nares patent, oropharynx clear without exudates. Moist mucous membranes. No oral ulcerations or bleeding gums noted NECK: supple without lymphadenopathy. Trachea is central. No cervical or axillary lymphadenopathy noted. Carotids are 2+, JVD WNL LUNGS: Respiration seems nonlabored, no significant accessory muscle action noted. Breath sounds clear to auscultation bilaterally and equal noted. No wheezes rales or rhonchi noted. No significant dullness noted on percussion. CHEST: Palpation of the chest wall shows no significant chest wall tenderness. No other significant abnormalities noted. 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 ABDOMEN: Soft, no significant tenderness appreciated, normoactive bowel sounds. No guarding, no rebound. No rigidity noted . No masses appreciated. EXTREMITIES: Pedal pulses are 1-2+, no calf tenderness noted. No clubbing or cyanosis.trace to 1+ pedal edema noted NEUROLOGICAL: Focused neurological exam showed no significant neurologic deficit. Normal speech, no focal weakness appreciated. PSYCH: Normal mood, normal affect. Judgment and insight within normal limits. SKIN: No significant ecchymosis, rash, ulcerations or signs of pruritus noted. MUSCULOSKELETAL EXAM: No significant joint swelling noted. Results Laboratory Results: 10/30/17 19:44 10/30/17 19:44 10/30/17 10/30/17 10/30/17 19:44 19:44 19:44 Creatine Kinase 79 CK-MB (CK-2) 0.46 Troponin I < 0.012 NT-Pro-B Natriuret Pep 37 10/31/17 10/31/17 10/31/17 01:43 01:43 07:45 Creatine Kinase 66 57 CK-MB (CK-2) 0.36 Troponin I < 0.012 NT-Pro-B Natriuret Pep 10/31/17 07:45 Creatine Kinase CK-MB (CK-2) 0.34 Troponin I < 0.012 NT-Pro-B Natriuret Pep Impressions: Chest X-Ray 10/30/17 00:00 IMPRESSION: NO ACUTE RADIOGRAPHIC FINDING IN THE CHEST. Abdomen Ultrasound 10/31/17 00:00 IMPRESSION: 1. No gallstones identified. 2. Hepatic steatosis. 3. Possible nonobstructing superior pole right renal calculus. Chest/Abdomen CTA 10/31/17 00:00 IMPRESSION: Contrast bolus not optimized for the pulmonary arteries or aorta.No emboli visualized in the main pulmonary arteries. The segmental branches cannot be assessed. No consolidation. Assessment & Plan - Diagnosis (1) Abnormal cardiovascular stress test Is this a current diagnosis for this admission?: Yes (2) Chest pain Qualifiers: Chest pain type: unspecified Qualified Code(s): R07.9 - Chest pain, unspecified Is this a current diagnosis for this admission?: Yes (3) Hypertension Qualifiers: Hypertension type: essential hypertension Qualified Code(s): I10 - Essential (primary) hypertension Is this a current diagnosis for this admission?: Yes (4) Shortness of breath Is this a current diagnosis for this admission?: Yes (5) Type 2 diabetes mellitus Qualifiers: Diabetes mellitus complication status: without complication Diabetes mellitus extermination inspector insulin use: without extermination inspector use Qualified Code(s): E11.9 - Type 2 diabetes mellitus without complications Is this a current diagnosis for this admission?: Yes (6) Sleep disorder breathing Is this a current diagnosis for this admission?: Yes - Notes Notes: Nuclear stress test results were reviewed. CT scan results were reviewed. Discussed need for close cardiology follow-up and evaluation. Patient's medical regimen reviewed. Agree with current plans by glaciologist. Patient cleared for discharge. - Time Time with patient: 15-25 minutes - CODE STATUS was discussed, patient remains full code. Surrogate decision-maker unchanged. Multiple medical problems were addressed. More than 50% of the time spent coordinating care, discussing management plans with involved caregivers. Management plans discussed with involved personnels. Medical decision making was of moderate to high complexity , patient's has multiple comorbidities. Medications reviewed and adjusted accordingly: Yes
[2017-11-02] MEDS ORDERED: ERGOCALCIFEROL (VITAMIN D2) 50000 UNIT (1.25 MG) CAPSULE PO SCH (10:00)
== END 2017-11-01 10:10 | disposition home or self-care (01) ==
LOC: 3W 15:11
PROVIDERS: ADMIT Internal Medicine; ATTEND Internal Medicine
DX: R07.2 Precordial pain (principal); R94.39 Abnormal result of other cardiovascular function study; E11.9 Type 2 diabetes mellitus without complications; I10 Essential (primary) hypertension; R06.02 Shortness of breath; R06.83 Snoring; R53.83 Other fatigue; G47.8 Other sleep disorders; E66.9 Obesity, unspecified; R06.00 Dyspnea, unspecified; E03.9 Hypothyroidism, unspecified; M15.9 Polyosteoarthritis, unspecified; Z79.899 Other long term (current) drug therapy; Z79.82 Long term (current) use of aspirin; Z79.84 Long term (current) use of oral hypoglycemic drugs; Z77.22 Contact with and (suspected) exposure to environmental tobacco smoke (acute) (chronic); Z87.891 Personal history of nicotine dependence; Z82.49 Family history of ischemic heart disease and other diseases of the circulatory system; Z68.41 Body mass index [BMI] 40.0-44.9, adult
CPT/HCPCS: 36415 ×2; 82553 ×2; 82962 ×3; 82550 ×2; 85025; 85610; 85730; 80076; 80048; 84484 ×2; 85379; 83880; 93306; 93017; 71010; 76705; 78452; 71275; 93005; 93010; A9500; A9270 ×19; J2785; J3490; J1650; J7030; J0280; Q9969

== ENCOUNTER → 2017-12-29 | Outpatient (CLI) | payer MEDICARE, OTHER ==
--- NOTE | 2018-01-02 09:38 | WOMENS IMAGING REPORT ---
EXAM DESCRIPTION: 3D SCREENING MAMMO BILAT COMPLETED DATE/TIME: 12/29/2017 1:53 pm REASON FOR STUDY: ROUTINE SCREENING; Z12.31 Z12.31 ENCNTR SCREEN MAMMOGRAM FOR MALIGNANT NEOPLASM O F [place] COMPARISON: 12/26/2016 and 09/04/2016. TECHNIQUE: Standard craniocaudal and mediolateral oblique views of each breast recorded using digita l acquisition and breast tomosynthesis. LIMITATIONS: None. FINDINGS: Findings present which are benign by mammographic criteria. No suspicious masses, calcifi cations or architectural distortion. Pertinent benign findings: Stable calcifications. Read with the assistance of CAD. .[facility] - R2 Cenova Version 1.3 .[facility] Imaging - R2 Cenova Version 1.3 .[facility] - R2 Cenova Version 2.4 .[facility] - R2 Cenova Version 2.4 .[facility] - R2 [employer] Version 9.2 Benign mammographic findings may include one or more of the following: Smooth masses, popcorn/rim/co arse calcifications, asymmetries, post-procedure changes, and lesions with long-standing stability. IMPRESSION: BENIGN MAMMOGRAPHIC FINDINGS. BIRADS 2 BREAST DENSITY: a. The breasts are almost entirely fatty. BIRAD: 2 BENIGN FINDING(S) RECOMMENDATION: RECOMMENDATION: ROUTINE SCREENING COMMENT: The patient has been notified of the results by letter per SA requirements. Additional no tification policies are in place for contacting patient with suspicious or incomplete findings. Quality ID #[id number]: The [employer] recommends an annual screening mammogram for women aged 40 years or over. This facility utilizes a reminder system to ensure that all patients receive reminder letters, and/or direct phone calls for appointments. This includes reminders for routine scr eening mammograms, diagnostic mammograms, or other Breast Imaging Interventions when appropriate. Th is patient will be placed in the appropriate reminder system. The [employer] [place] [employer] (ACR) has developed recommendations for screening MRI of the breast s in certain patient populations, to be used in conjunction with mammography. Breast MRI surveillanc e may be appropriate for women with more than 20% lifetime risk of developing breast cancer as deter mined by genetic testing, significant family history of the disease, or history of mantle radiation f or Hodgkins Disease. ACR Practice Guidelines 2008. DBT Technology DBT is a type of tomographic mammography. With conventional mammography, overlapping breast tissue ma y make lesions difficult to detect, even with good compression. DBT uses an x-ray tube that rotates a round the breast, taking images at different angles. These images are then combined to create thin sl ices of the breast that the radiologist can view as a 3D reconstruction. The Monetate unit can perform full-field digital mammograms (2D imaging); or DBT (3D imaging); or both, in a combination mode that quickly performs both the mammogram and the tomosynthesis scan while the breast is still compressed. PQRS 6045F: Fluoroscopic imaging is not utilized for breast tomosynthesis. TECHNICAL DOCUMENTATION: FINDING NUMBER: (1) ASSESSMENT: (1) JOB ID: [id number] [employer]- All Rights Reserved Reading location - IP/workstation name: [email or web address]
== END ==
LOC: WI 13:30
PROVIDERS: ATTEND Internal Medicine
DX: Z12.31 Encounter for screening mammogram for malignant neoplasm of breast (principal)
CPT/HCPCS: 77063; 77067

== ENCOUNTER → 2018-01-09 | Outpatient (CLI) | payer MEDICARE, OTHER ==
--- NOTE | 2018-01-09 17:16 | RADIOLOGY REPORT (SQ) ---
EXAM DESCRIPTION: CT CHEST WITHOUT COMPLETED DATE/TIME: 01/09/2018 4:30 pm REASON FOR STUDY: R05 COUGH R05 COUGH COMPARISON: None. TECHNIQUE: CT scan performed of the chest without intravenous contrast. Images reviewed with lung, soft tissue and bone windows. Reconstructed coronal and sagittal MPR images reviewed. All images st ored on PACS. All CT scanners at this facility use dose modulation, iterative reconstruction, and/or weight based d osing when appropriate to reduce radiation dose to as low as reasonably achievable (ALARA). [facility]: Dose Right [facility]: CareDose [facility]: Dose Right [facility]: Teradose 4D [facility]: Recorded Future RADIATION DOSE: CT Rad equipment meets quality standard of care and radiation dose reduction techniq ues were employed. CTDIvol: 18.9 mGy. DLP: 801 mGy-cm. mGy. LIMITATIONS: No technical limitations. FINDINGS: LUNGS AND PLEURA: No masses, infiltrates, pneumothorax. No pleural effusions, calcificati ons. HILAR AND MEDIASTINAL STRUCTURES: No identified masses or abnormal nodes. No obvious aneurysm. HEART AND VASCULAR STRUCTURES: No aneurysm. No pericardial effusion. UPPER ABDOMEN: Calculus in the right kidney. Limited exam. THYROID AND OTHER SOFT TISSUES: No masses. No adenopathy. BONES: No significant finding. Degenerative changes in the spine. HARDWARE: None in the chest. OTHER: No other significant findings. IMPRESSION: NO SIGNIFICANT FINDING ON NON-CONTRASTED CHEST CT. TECHNICAL DOCUMENTATION: JOB ID: [id number] Quality ID # [id number]: Final reports with documentation of one or more dose reduction techniques (e.g., Au tomated exposure control, adjustment of the mA and/or kV according to patient size, use of iterative reconstruction technique) 2010 [email or web address]- All Rights Reserved Reading location - IP/workstation name: [email or web address]
== END ==
LOC: RAD 16:34
PROVIDERS: ATTEND Internal Medicine
DX: R05 Cough (principal)
CPT/HCPCS: 71250

== ENCOUNTER → 2018-01-20 | Outpatient (CLI) | payer MEDICARE, OTHER ==
--- NOTE | 2018-01-20 15:53 | RADIOLOGY REPORT (SQ) ---
EXAM DESCRIPTION: HIP BILATERAL COMPLETED DATE/TIME: 01/20/2018 2:53 pm REASON FOR STUDY: M25.552 PAIN IN LEFT HIP M25.552 PAIN IN LEFT HIP COMPARISON: 08/14/2010 NUMBER OF VIEWS: Two views. TECHNIQUE: AP pelvis and additional frog-leg view of the right and left hip. LIMITATIONS: None. FINDINGS: MINERALIZATION: Normal. RIGHT HIP: No fracture or dislocation. No worrisome bone lesions. LEFT HIP: No fracture or dislocation. No worrisome bone lesions. PUBIS AND ISCHIUM: No fracture. PELVIS: No fracture. SACRUM: No fracture or dislocation. No worrisome bone lesions. LOWER LUMBAR SPINE: Degenerative disc disease and spondylosis are present in the lower lumbar spine. SOFT TISSUES: No findings. OTHER: No other significant finding. IMPRESSION: Lower lumbar degenerative changes. No acute abnormality is seen in the hips. TECHNICAL DOCUMENTATION: JOB ID: [id number] [employer]- All Rights Reserved Reading location - IP/workstation name: [email or web address]
== END ==
LOC: RAD 14:37
PROVIDERS: ATTEND Internal Medicine
DX: M25.552 Pain in left hip (principal)
CPT/HCPCS: 73522

== ENCOUNTER → 2018-06-23 | Outpatient (CLI) | payer MEDICARE, OTHER ==
--- NOTE | 2018-06-23 15:04 | RADIOLOGY REPORT (SQ) ---
EXAM DESCRIPTION: SHOULDER BILAT 2 OR MORE VIEWS; CERV SP 4 OR 5 VIEWS COMPLETED DATE/TIME: 06/23/2018 2:33 pm REASON FOR STUDY: PAIN IN LEFT SHOULDER/PAIN IN RIGHT SHOULDER; CERVICALGIA COMPARISON: See below. NUMBER OF VIEWS: Five views cervical spine. Three views of the each shoulder. LIMITATIONS: None. FINDINGS: Cervical spine: 2014 comparison. Straightening of the normal cervical lordosis. Multile eric disc space narrowing with prominent anterior bridging osteophytes. No fracture or bone lesion. Moderate -marked bilateral foraminal stenosis. Most pronounced on the right at C4-5, C5-6, C6-7 and on the left at C3-4, C4-5, C5-6, C6-7. Lung apices clear. Right shoulder: Mild subacromial narrowing. No subluxation or dislocation. No fracture or bone les ion. Left shoulder: No subluxation or dislocation. No fracture or bone lesion. OTHER: Bilateral visualized lung gonzalez are clear. IMPRESSION: 1. Cervical spondylosis. Bilateral foraminal narrowing as above. 2. Mild loss of the right subacromial space may reflect cuff tear. No fracture or bone lesion in the shoulders. TECHNICAL DOCUMENTATION: JOB ID: [id number] Reading location - IP/workstation name: [email or web address]
== END ==
LOC: RAD 14:02
PROVIDERS: ATTEND Internal Medicine
DX: M25.511 Pain in right shoulder (principal); M25.512 Pain in left shoulder; M54.2 Cervicalgia; M47.892 Other spondylosis, cervical region
CPT/HCPCS: 72050

== ENCOUNTER → 2018-12-30 | Outpatient (CLI) | payer MEDICARE, OTHER ==
--- NOTE | 2018-12-30 13:55 | WOMENS IMAGING REPORT ---
EXAM DESCRIPTION: 3D SCREENING MAMMO BILAT COMPLETED DATE/TIME: 12/30/2018 1:18 pm REASON FOR STUDY: ROUTINE 3D BILATERAL SCREENING,Z12.31 Z12.31 ENCNTR SCREEN MAMMOGRAM FOR MALIGNAN T NEOPLASM OF [place] COMPARISON: [id number] TECHNIQUE: Standard craniocaudal and mediolateral oblique views of each breast recorded using digita l acquisition and breast tomosynthesis. LIMITATIONS: None. FINDINGS: RIGHT BREAST MASSES: No suspicious masses. CALCIFICATIONS: Clustered calcifications upper outer quadrant 12 cm deep to the nipple. ARCHITECTURAL DISTORTION: None. DEVELOPING DENSITY: None. ASYMMETRY: None noted. OTHER: No other significant findings. LEFT BREAST MASSES: No suspicious masses. CALCIFICATIONS: No new or suspicious calcifications. ARCHITECTURAL DISTORTION: None. DEVELOPING DENSITY: None. ASYMMETRY: None noted. OTHER: No other significant findings. Read with the assistance of CAD. .[facility] - R2 Cenova Version 1.3 .[facility] - R2 Cenova Version 2.1 .[facility] - R2 Cenova Version 2.4 .[facility] - R2 Cenova Version 2.4 .[facility] - R2 Multigrapher Version 9.2 IMPRESSION: Calcifications right breast. BREAST DENSITY: a. The breasts are almost entirely fatty. BIRAD: 0 Incomplete: Needs Additional Imaging Evaluation and/or prior Mammograms for Comparison. RECOMMENDATION: RECOMMENDED FOLLOW-UP: True lateral and magnification views right breast. The patient will be contacted for additional imaging. COMMENT: The patient has been notified of the results by letter per SA requirements. Additional no tification policies are in place for contacting patient with suspicious or incomplete findings. Quality ID #225: The [employer] recommends an annual screening mammogram for women aged 40 years or over. This facility utilizes a reminder system to ensure that all patients receive reminder letters, and/or direct phone calls for appointments. This includes reminders for routine scr eening mammograms, diagnostic mammograms, or other Breast Imaging Interventions when appropriate. Th is patient will be placed in the appropriate reminder system. The [employer] (ACR) has developed recommendations for screening MRI of the breast s in certain patient populations, to be used in conjunction with mammography. Breast MRI surveillanc e may be appropriate for women with more than 20% lifetime risk of developing breast cancer as deter mined by genetic testing, significant family history of the disease, or history of mantle radiation f or Hodgkins Disease. ACR Practice Guidelines 2008. DBT Technology DBT is a type of tomographic mammography. With conventional mammography, overlapping breast tissue ma y make lesions difficult to detect, even with good compression. DBT uses an x-ray tube that rotates a round the breast, taking images at different angles. These images are then combined to create thin sl ices of the breast that the radiologist can view as a 3D reconstruction. The PixelPlay unit can perform full-field digital mammograms (2D imaging); or DBT (3D imaging); or both, in a combination mode that quickly performs both the mammogram and the tomosynthesis scan while the breast is still compressed. PQRS 6045F: Fluoroscopic imaging is not utilized for breast tomosynthesis. TECHNICAL DOCUMENTATION: FINDING NUMBER: (1) ASSESSMENT: (1) JOB ID: [id number] [employer]- All Rights Reserved Reading location - IP/workstation name: [email or web address]
== END ==
LOC: WI 12:59
PROVIDERS: ATTEND Internal Medicine
DX: Z12.31 Encounter for screening mammogram for malignant neoplasm of breast (principal)
CPT/HCPCS: 77063; 77067

== ENCOUNTER → 2019-01-13 | Outpatient (CLI) | payer MEDICARE, OTHER ==
--- NOTE | 2019-01-13 15:47 | WOMENS IMAGING REPORT ---
EXAM DESCRIPTION: RIGHT DIAGNOSTIC MAMMO W/CAD COMPLETED DATE/TIME: 01/13/2019 11:16 am REASON FOR STUDY: R92.0 MAMMOGRAPHIC MICROCALCIFICATION FOUND ON DIAGNOSTIC IMAGING OF BREAST R92.0 MAMMOGRAPHIC MICROCALCIFICATION FOUND ON DX IMAGING OF COMPARISON: 12/30/2018, 12/29/2017, 12/26/2016, and 09/04/2016. TECHNIQUE: True lateral and magnification lateral and CC images acquired. LIMITATIONS: None. FINDINGS: BREAST LATERALITY: right MASSES: No suspicious masses. CALCIFICATIONS: Cluster of calcifications in the upper-outer quadrant, some of which are associated w ith a small nodule. Somewhat irregular size and shape. ARCHITECTURAL DISTORTION: None. DEVELOPING DENSITY: None. ASYMMETRY: None noted. OTHER: No other significant findings. IMPRESSION: Cluster of calcifications in the upper-outer quadrant of the right breast which have bee n present on prior mammograms but have increased in number and have a somewhat irregular size and sha pe. BREAST DENSITY: a. The breasts are almost entirely fatty. BIRAD: 4 Suspicious. Biopsy should be performed in the absence of clinical contra-indication. RECOMMENDATION: RECOMMENDED FOLLOW UP: Birads 4: Biopsy should be performed in the absence of clinic al contraindication. SPECIFIC INTERVENTION/IMAGING/CONSULTATION RECOMMENDED:The suspicious finding(s) amenable to stereo-t actic-guided vacuum assisted core biopsy. COMMUNICATION:The imaging findings were not discussed with the patient. Her referring provider has be en notified of the findings. COMMENT: The patient has been notified of the results by letter per SA requirements. Additional no tification policies are in place for contacting patient with suspicious or incomplete findings. Quality ID #[id number]: The [employer] recommends an annual screening mammogram for women aged 40 years or over. This facility utilizes a reminder system to ensure that all patients receive reminder letters, and/or direct phone calls for appointments. This includes reminders for routine scr eening mammograms, diagnostic mammograms, or other Breast Imaging Interventions when appropriate. Th is patient will be placed in the appropriate reminder system. The [employer] (ACR) has developed recommendations for screening MRI of the breast s in certain patient populations, to be used in conjunction with mammography. Breast MRI surveillanc e may be appropriate for women with more than 20% lifetime risk of developing breast cancer as deter mined by genetic testing, significant family history of the disease, or history of mantle radiation f or Hodgkins Disease. ACR Practice Guidelines 2008. TECHNICAL DOCUMENTATION: FINDING NUMBER: (1) ASSESSMENT: (1) JOB ID: [id number] [employer]- All Rights Reserved Reading location - IP/workstation name: [email or web address]
== END ==
LOC: WI 11:01
PROVIDERS: ATTEND Internal Medicine
DX: R92.0 Mammographic microcalcification found on diagnostic imaging of breast (principal)

== ENCOUNTER → 2019-02-09 | Day surgery (SDC) | payer MEDICARE, OTHER ==
[~2019-02-09] MED LIST changes: -DIAZEPAM 5 MG TABLET ONE; +LIDOCAINE 1%/EPINEPHRINE INJ 20 ML VIAL ONE; +LIDOCAINE 2% INJ (20 MG/ML) 20 ML MDV ONE
--- NOTE | 2019-02-10 16:04 | RADIOLOGY REPORT (SQ) ---
EXAM DESCRIPTION: STEREO BREAST BX; RIGHT DIG DX MAMMO NO CHG COMPLETED DATE/TIME: 02/09/2019 10:53 am; 02/09/2019 10:27 am REASON FOR STUDY: RIGHT BREAST MICROCALCS (R92.0); RT BREAST BIOPSY R92.0 MAMMOGRAPHIC MICROCALCIFI CATION FOUND ON DX IMAGING OF COMPARISON: Multiple previous mammograms TECHNIQUE: Vacuum-assisted stereotactic-guided biopsy of the lesion in the right breast. Serial prog ress stereotactic and single digital images acquired. PROCEDURE: The procedure was discussed with the patient, including possible complications such as bleeding, infection, nondiagnostic sample or possible findings such as atypical ductal hyperplasia wh ich would require additional surgery. Possible clip placement was explained. The patient agreed t o the procedure. The patient was placed prone on the stereotactic table. The lesion in the breast was localized ster eotactically. The skin of the breast was prepped in sterile fashion. Superficial and deep local an esthesia was provided. A small incision was made in the skin and the biopsy probe was advanced to t he target. Using the vacuum-assisted core biopsy device, multiple core specimens were obtained. Continuous low dose infusion of local anesthesia was used during the procedure. A specimen radiograph was obtained. The radiograph demonstrated calcifications of concern in the bio psy tissue. Using [id number] technique a pellet clip was deployed at the biopsy site. Mammographic image confirmed presence of the clip. The probe was then removed and hemostasis obtained with manua l compression. A compression bandage was applied. Postoperative instructions were explained to th e patient. POST-PROCEDURE TWO VIEW DIGITAL MAMMOGRAM: An additional two view mammogram was recorded in the [facility] mammographic suite. Marker clip is present at the biopsy site. LIMITATIONS: None. 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 POST PROCEDURE MAMMOGRAMS FOR MARKER PLACEMENT: Yes IMPRESSION: SUCCESSFUL STEREOTACTIC-GUIDED BIOPSY OF THE LESION IN THE RIGHT BREAST. BIOPSY RESULT S ARE CONCORDANT WITH IMAGING FINDINGS. Benign fibroadenoma BI-RADS 2, benign findings FOLLOW-UP: Please continue yearly bilateral screening mammography/tomosynthesis in December 2019 NOTIFICATION: These results were discussed directly with the patient, 02/10/2019 1100 hours. She unde rstands that this is a benign diagnosis, and that she should return to yearly bilateral screening berta mography/ tomosynthesis in December 2019. COMMENT: Patient medication list reviewed: Yes- Quality ID# [id number]:Eligible professional attests to doc umenting in the medical record they obtained, updated, or reviewed the patient's current medications. TECHNICAL DOCUMENTATION: JOB ID: [id number] [employer]- All Rights Reserved Reading location - IP/workstation name: [email or web address]
== END ==
LOC: RAD 08:33
PROVIDERS: ATTEND Surgery
DX: R92.0 Mammographic microcalcification found on diagnostic imaging of breast (principal); D24.1 Benign neoplasm of right breast
CPT/HCPCS: 88305 ×2; 88342; 19081; J3490 ×2

== ENCOUNTER → 2019-12-31 | Outpatient (CLI) | payer MEDICARE, OTHER ==
--- NOTE | 2020-01-01 14:15 | WOMENS IMAGING REPORT ---
EXAM DESCRIPTION: 3D SCREENING MAMMO BILAT COMPLETED DATE/TIME: 12/31/2019 2:17 pm REASON FOR STUDY: Z12.31 SCREENING MAMMO Z12.31 ENCNTR SCREEN MAMMOGRAM FOR MALIGNANT NEOPLASM OF B RE COMPARISON: Multiple since 2009 EXAM PARAMETERS: Standard craniocaudal and mediolateral oblique views of each breast recorded using digital acquisition and breast tomosynthesis. Read with the assistance of CAD. .[facility] - [employer] Version 9.2 LIMITATIONS: None. FINDINGS: Findings present which are benign by mammographic criteria. No suspicious masses, calcific ations or architectural distortion. Pertinent benign findings: Multiple benign bilateral breast calcifications. Multiple bilateral breas t biopsy clips. Benign mammographic findings may include one or more of the following: Smooth masses, popcorn/rim/coa rse calcifications, asymmetries, post-procedure changes, and lesions with long-standing stability. IMPRESSION: BENIGN MAMMOGRAPHIC FINDINGS. BIRADS 2 BREAST DENSITY: a. The breasts are almost entirely fatty. BIRAD: ASSESSMENT: 2 BENIGN FINDING(S) RECOMMENDATION: ROUTINE SCREENING Please continue yearly bilateral screening mammography/tomosynthesis in December 2020 COMMENT: The patient has been notified of the results by letter per MQSA requirements. Additional no tification policies are in place for contacting patient with suspicious or incomplete findings. Quality ID #[id number]: The [employer] recommends an annual screening mammogram for women aged 40 years or over. This facility utilizes a reminder system to ensure that all patients receive reminder letters, and/or direct phone calls for appointments. This includes reminders for routine scr eening mammograms, diagnostic mammograms, or other Breast Imaging Interventions when appropriate. Th is patient will be placed in the appropriate reminder system. TECHNICAL DOCUMENTATION: FINDING NUMBER: (1) ASSESSMENT: (1) JOB ID: [id number] 2010 [employer]- All Rights Reserved Reading location - IP/workstation name: [email or web address]
== END ==
LOC: WI 13:55
PROVIDERS: ATTEND Internal Medicine
DX: Z12.31 Encounter for screening mammogram for malignant neoplasm of breast (principal)
CPT/HCPCS: 77063; 77067

== ENCOUNTER → 2020-08-08 | Outpatient (CLI) | payer MEDICARE, OTHER ==
--- NOTE | 2020-08-08 09:53 | WOMENS IMAGING REPORT ---
EXAM DESCRIPTION: 3D DX MAMMO RIGHT UNILAT IMAGES COMPLETED DATE/TIME: 08/08/2020 9:07 am REASON FOR STUDY: R92.8 OTH ABN AND INCONCLUSIVE FINDINGS ON DX IMAGING OF BREAST R92.8 OTH ABN AND INCONCLUSIVE FINDINGS ON DX IMAGING OF [place] COMPARISON: 12/31/2019, 12/30/2018, and 12/29/2017. EXAM PARAMETERS: Standard craniocaudal and mediolateral oblique images of the breast recorded using digital acquisition and breast tomosynthesis. Additional true lateral images acquired with tomosynthesis. Read with the assistance of CAD. .[facility] - [employer]2 [employer] Rn Version 9.2 LIMITATIONS: None. FINDINGS: BREAST LATERALITY: right MASSES: No suspicious masses. CALCIFICATIONS: Stable calcifications. No new or suspicious calcifications. ARCHITECTURAL DISTORTION: None. ASYMMETRY: None noted. OTHER: No other significant findings. IMPRESSION: Stable mammographic appearance. Stable calcifications. No worrisome findings. BREAST DENSITY: a. The breasts are almost entirely fatty. BIRAD: ASSESSMENT: 2 Benign findings. RECOMMENDATION: RECOMMENDED FOLLOW UP: Birads 1 or 2: The patient should resume routine screening . SPECIFIC INTERVENTION/IMAGING/CONSULTATION RECOMMENDED:No additional intervention/ imaging/consultati on needed at this time. COMMUNICATION:The imaging findings were not discussed with the patient. Her referring provider has be en notified of the findings. COMMENT: The patient has been notified of the results by letter per [place] requirements. Additional no tification policies are in place for contacting patient with suspicious or incomplete findings. Quality ID #[id number]: The [employer] recommends an annual screening mammogram for women aged 40 years or over. This facility utilizes a reminder system to ensure that all patients receive reminder letters, and/or direct phone calls for appointments. This includes reminders for routine scr eening mammograms, diagnostic mammograms, or other Breast Imaging Interventions when appropriate. Th is patient will be placed in the appropriate reminder system. TECHNICAL DOCUMENTATION: FINDING NUMBER: (1) ASSESSMENT: (1) JOB ID: [id number] 2010 [employer]- All Rights Reserved Reading location - IP/workstation name: [email or web address]
== END ==
LOC: WI 08:44
PROVIDERS: ATTEND Surgery
DX: R92.8 Other abnormal and inconclusive findings on diagnostic imaging of breast (principal)
CPT/HCPCS: 77065; G0279